=== PATIENT | male | born 1970 | race Caucasian/White ===

== ENCOUNTER 2019-09-18 13:24 | Outpatient (RCR) | payer BC, SELFPAY | END 2019-10-12 23:59 | disposition home or self-care (01) | LOC: GPT 13:24 | PROVIDERS: Family Provider Family Medicine; PCP Family Medicine; Visit Provider Orthopaedic Surgery | DX: Z47.89 Encounter for other orthopedic aftercare (principal) | CPT/HCPCS: 97032; 97110; 97140; 97161; 97530 ==

== ENCOUNTER 2019-10-13 06:00 | Outpatient (RCR) | payer BC, SELFPAY | END 2019-11-10 23:59 | disposition home or self-care (01) | LOC: GPT 06:00 | PROVIDERS: Family Provider Family Medicine; PCP Family Medicine; Visit Provider Orthopaedic Surgery | DX: S46.092D Other injury of muscle(s) and tendon(s) of the rotator cuff of left shoulder, subsequent encounter (principal); X58.XXXD Exposure to other specified factors, subsequent encounter | CPT/HCPCS: 97110; 97164; 97530 ==

== ENCOUNTER 2019-11-11 06:00 | Outpatient (RCR) | payer BC, SELFPAY | END 2019-12-11 23:59 | disposition home or self-care (01) | LOC: GPT 06:00 | PROVIDERS: Family Provider Family Medicine; PCP Family Medicine; Visit Provider Orthopaedic Surgery | DX: Z98.890 Other specified postprocedural states (principal); X58.XXXD Exposure to other specified factors, subsequent encounter | CPT/HCPCS: 97110; G0283 ==

== ENCOUNTER 2019-11-14 12:56 | Emergency (ER) | payer BC, SELFPAY ==
[2019-11-14 12:57] VITALS: BP 169/107; PULSE 68; RESP 16; TEMP 36.7; O2SAT 96; BMI 33.0
== END 2019-11-14 13:20 | disposition left against medical advice (07) ==
LOC: ER 14:54
PROVIDERS: Emergency Provider Emergency Medicine; Family Provider Family Medicine; PCP Family Medicine
DX: T15.90XA Foreign body on external eye, part unspecified, unspecified eye, initial encounter (principal); Z53.21 Procedure and treatment not carried out due to patient leaving prior to being seen by health care provider
CPT/HCPCS: 99281

== ENCOUNTER → 2020-06-19 10:06 | Outpatient (BNVA) | payer BC, SELFPAY | PROVIDERS: Family Provider Family Medicine; PCP Family Medicine; Visit Provider Family Medicine | DX: U07.1 COVID-19 (principal); E11.9 Type 2 diabetes mellitus without complications | CPT/HCPCS: 83036; 85025; 87400; 87635; 87880 ==

== ENCOUNTER 2020-07-25 13:21 | Outpatient (CLI) | payer BC, SELFPAY ==
--- NOTE | 2020-07-25 13:33 | XR_ITS ---
WS: [id number] Lumbar spine, AP and lateral views, 07/25/2020 Clinical Data: LOW BACK PAIN Comparison: Lumbar spine, 10/10/2018. Findings: There is a dextrorotoscoliosis with severe osteoarthritis and degenerative disc disease at all levels . No compression fractures are seen. The transverse processes and SI joints are normal. There are clips in the right upper quadrant from a cholecystectomy. XR/XR lumbar spine 2-3V* [id number] Impression: Dextrorotoscoliosis and severe osteoarthritis and degenerative disc disease unc hanged.
== END 2020-07-25 13:22 | disposition home or self-care (01) ==
LOC: RADWPI 13:25
PROVIDERS: PCP Family Medicine; Visit Provider Anesthesiology Pain Medicine
DX: M54.5 Low back pain (principal); M41.86 Other forms of scoliosis, lumbar region; M47.816 Spondylosis without myelopathy or radiculopathy, lumbar region; M51.36 Other intervertebral disc degeneration, lumbar region
CPT/HCPCS: 72100

== ENCOUNTER → 2021-01-19 10:06 | Outpatient (BNVA) | payer BC, SELFPAY | PROVIDERS: PCP Nurse Practitioner; Referring Provider Nurse Practitioner; Visit Provider Urology | DX: E34.9 Endocrine disorder, unspecified (principal); N39.9 Disorder of urinary system, unspecified; R39.9 Unspecified symptoms and signs involving the genitourinary system | CPT/HCPCS: 81003; 84403 ==

== ENCOUNTER → 2021-04-03 08:35 | Outpatient (BNVA) | payer BC, SELFPAY | PROVIDERS: PCP Nurse Practitioner; Visit Provider Urology | DX: R79.89 Other specified abnormal findings of blood chemistry (principal); D75.1 Secondary polycythemia; R07.9 Chest pain, unspecified; R51.9 Headache, unspecified | CPT/HCPCS: 84403; 85025 ==

== ENCOUNTER → 2021-05-05 10:08 | Outpatient (BNVA) | payer BC, SELFPAY | PROVIDERS: PCP Nurse Practitioner; Visit Provider Urology | DX: R79.89 Other specified abnormal findings of blood chemistry (principal); R39.9 Unspecified symptoms and signs involving the genitourinary system; D75.1 Secondary polycythemia | CPT/HCPCS: 81003; 84403 ==

== ENCOUNTER → 2021-05-20 11:01 | Outpatient (BNVA) | payer BC, SELFPAY | PROVIDERS: PCP Nurse Practitioner; Visit Provider Internal Medicine Rheumatology | DX: M19.90 Unspecified osteoarthritis, unspecified site (principal); R76.8 Other specified abnormal immunological findings in serum; Z79.899 Other long term (current) drug therapy; Z11.59 Encounter for screening for other viral diseases; Z11.1 Encounter for screening for respiratory tuberculosis; M65.30 Trigger finger, unspecified finger | CPT/HCPCS: 99204 ==

== ENCOUNTER 2021-12-10 10:07 | Outpatient (CLI) | payer BC, SELFPAY ==
--- NOTE | 2021-12-10 10:18 | MR_ITS ---
WS: [id number] MRI LUMBAR SPINE WITH CONTRAST TECHNIQUE: Sagittal T1, T2 and STIR imaging. Axial T1 and T2 imaging. Post gadolinium imaging was obt ained. CLINICAL INFORMATION: CHRONIC RADICULAR LOW BACK PAIN COMPARISON: MRI lumbar 2 ,019 FINDINGS: Lumbar scoliosis convex RIGHT. No acute compression fractures. Alignment is unchanged since 2019. Deg enerative disc disease throughout the lumbar spine. Disc space narrowing worse at L1-L2, L2-L3, L3-L4 , and L4-L5. L1-L2: Mild disc bulging with osteophytic ridging. Mild central canal stenosis. Impingement on the LE FT subarticular recess and traversing LEFT L2 nerve root. Mild facet arthropathy. Mild LEFT foraminal narrowing. Moderate facet arthropathy. L2-L3: Disc osteophyte complex with endplate ridging. Mild central canal stenosis. Impingement on the LEFT greater than RIGHT subarticular recess. Mild LEFT greater than RIGHT foraminal narrowing.Mild f acet arthropathy. L3-L4: Disc osteophyte complex with endplate ridging. Moderate central canal stenosis. Impingement tr aversing L4 nerve roots bilaterally. Moderate facet arthropathy. Moderate LEFT foraminal narrowing. L4-L5: Disc osteophyte complex with endplate ridging. Moderate central canal stenosis. Impingement on the traversing RIGHT L5 nerve root in the subarticular recess. Moderate facet arthropathy with ligam entum flavum hypertrophy. Severe RIGHT foraminal narrowing. L5-S1: Mild disc bulging and osteophytic ridging. Slight effacement of ventral thecal sac. Slight imp ingement traversing LEFT greater than RIGHT S1 nerve roots. Moderate facet arthropathy. Moderate LEFT and mild RIGHT foraminal narrowing. Suggestion of prior hemilaminectomies L4-L5. Prominent anterior hypertrophic changes LEFT L1-L3. Visualized pelvic bony structures: Normal. Paravertebral soft tissues: Normal. MR/MR lumbar spine wo/w con [id number] IMPRESSION: 1. Lumbar scoliosis convex RIGHT unchanged from previous. No acute compression fractures. 2. Mild central canal stenosis L1-L2, L2-L3, and moderate central canal stenos is L3-4 and L4-L5. 3. Impingement on the subarticular recess at LEFT L1-L2, bilateral L3-L4, and RIGHT L4-L5. 4. Bony foraminal narrowing worse at LEFT L3-L4, RIGHT L4-L5, and LEFT L5-S1. Bony foraminal narrowing severe at RIGHT L4-L5 5. Moderate facet arthropathy L3-L5. 6. Overall no significant changes compared to 2019 although prior imaging is s omewhat limited due to open magnet configuration.
[2021-12-10] MEDS: gadobenate dimeglumine 20 mL vial IV (11:34)
== END 2021-12-10 10:08 | disposition home or self-care (01) ==
PROVIDERS: PCP Nurse Practitioner; Visit Provider Nurse Practitioner
DX: M54.16 Radiculopathy, lumbar region (principal); M41.86 Other forms of scoliosis, lumbar region; M48.061 Spinal stenosis, lumbar region without neurogenic claudication; M47.816 Spondylosis without myelopathy or radiculopathy, lumbar region
CPT/HCPCS: 72158

== ENCOUNTER 2021-12-31 12:39 | Emergency (ER) | payer BC, SELFPAY ==
[2021-12-31 13:33] VITALS: BP 137/89; PULSE 74; RESP 16; TEMP 36.9; O2SAT 96; BMI 43.4
--- NOTE | 2021-12-31 15:15 | CTR_ITS ---
PROCEDURE INFORMATION: Exam: CT Abdomen And Pelvis With Contrast Exam date and time: 12/31/2021 4:32 PM Age: 51 years old Clinical indication: Abdominal pain; Localized; Lower; Additional info: Lower abd pain TECHNIQUE: Imaging protocol: Computed tomography of the abdomen and pelvis with contrast. Radiation optimization: All CT scans at this facility use at least one of these dose optimization techniques: automated exposure control; mA and/or kV adjustment per patient size (includes targeted exams where dose is matched to clinical indication); or iterative reconstruction. Contrast material: OMNI 300; Contrast volume: 0.95 ml; Contrast route: INTRAVENOUS (IV); COMPARISON: CR XR sacrum coccyx min 2V [id number] 10/22/2021 10:58 AM RADIATION DOSE METRICS: Total DLP (mGy-cm): 1837.7 FINDINGS: Lungs: Lingular atelectasis versus minimal infiltrate. Liver: Hepatic steatosis suspected. Gallbladder and bile ducts: Cholecystectomy. Pancreas: Normal. No ductal dilation. Spleen: Spleen enlarged to 15.9 cm. Adrenal glands: Normal. No mass. Kidneys and ureters: Normal. No hydronephrosis. Stomach and bowel: Prominent fluid in the small bowel without dilation suggestive of an enteritis. Diverticulosis without diverticulitis. Appendix: No evidence of appendicitis. Intraperitoneal space: Unremarkable. No free air. No significant fluid collection. Arteries: Unremarkable. No abdominal aortic aneurysm. Lymph nodes: Unremarkable. No enlarged lymph nodes. Urinary bladder: Unremarkable as visualized. Reproductive: Unremarkable as visualized. Bones/joints: Unremarkable. No acute fracture. Soft tissues: Unremarkable. CT/CT abdomen pelvis w con* [id number] IMPRESSION: 1. Prominent fluid in the small bowel without dilation suggestive of an enteritis. 2. Diverticulosis without diverticulitis. 3. Lingular atelectasis versus minimal infiltrate. 4. Hepatic steatosis suspected. 5. Cholecystectomy. 6. Spleen enlarged to 15.9 cm.
--- NOTE | 2021-12-31 15:15 | ECG_ITS ---
[facility] Test Date: 2021-12-31 Pat Name: Jake Alcala Department: Room: Gender: Male Wrap Checker: : 1970 Requested By: Nicole Marquez Order Number: [id number] Hakeem MD: Jennifer Chapman M.D. Measurements Intervals [place] Rate: 61 P: 46 ND: 143 QRS: 20 QRSD: 106 T: 53 QT: 389 QTc: 393 Interpretive Statements SINUS RHYTHM Compared to ECG 03/03/2019 22:15:45 No significant changes Electronically Signed On 12-31-2021 16:44:15 CDT by Jennifer Chapman M.D. [id number]
--- NOTE | 2021-12-31 15:18 | W.ED.GENADLT ---
HPI - General Adult General: Chief complaint: Abdominal Pain Stated complaint: lower stomach pain Time Seen by Provider: 12/31/21 15:02 History of Present Illness: Patient is a 51-year-old male with history of prior cholecystectomy, HTN, DM, DJD presenting to the emergency room with complaints of periumbilical pain x2 weeks. Patient has been having worsening pain in the last 2 weeks including intermittent sharp sensation. Patient says pain is worse with p.o. intake. Patient denies any melena hematochezia but reports significant diarrhea since onset of symptoms. Patient denies any sick contact, recent travel, or antibiotic use. Patient reports mild nausea without any vomiting. Denies any fever or chills, urinary complaints, chest pain, shortness breath, palpitation or lightheadedness. Onset:2 weeks ago Duration:2 weeks Location:home Severity:modreate Associated symptoms: Reports nausea; Deny chest pain, dyspnea, rash, palpitations or vomiting Review of Systems Const: Denies: fever(s) or chills Eyes: Denies: change in vision ENMT: Denies: mouth pain Card: Denies: chest pain or palpitations Resp: Denies: dyspnea or non-productive cough GI: Reports: abdominal pain, nausea and diarrhea; Denies: vomiting : Denies: dysuria Musc: Denies: extremity pain Skin/Breast: Denies: rash or new lesions Neuro: Denies: weakness in extremities Psych: Reports: other (Normal mood) Asaf/Lymph: Denies: easy bruising PFSH ED PFSH: Medical History High risk medication use Hypogonadism Inflammatory arthritis Lower urinary tract symptoms (LUTS) Polycythemia Rheumatoid factor positive Trigger finger Family History Mother Macular degeneration Father , AT AGE 64 Cancer LUNG Social History Alcohol intake: never Marital status: Current occupational status: employed History of recent travel: No Physical Exam Const: COMMON NORMALS: alert HENMT: COMMON NORMALS: atraumatic HEAD & SCALP: atraumatic MOUTH: moist mucous membranes not abnormal Eye: COMMON NORMALS: EOMs intact bilaterally and conjunctivae normal CONJUNCTIVA: Yes conjunctivae normal Neck/C-Spine: COMMON NORMALS: full ROM and supple Resp: COMMON NORMALS: normal respiratory effort and clear to auscultation bilaterally AUSCULTATION: clear to auscultation bilaterally Cardio: COMMON NORMALS: regular rate RATE: regular rate GI: COMMON NORMALS: Soft to palpation PALPATION: Yes Soft to palpation OTHER: +mild periumbilical TTP. NO guarding rebound, guarding, rigidity. No CVA tenderness to percussion. Neg Denney/Neg McBurney's point tenderness, no suprabupic tenderness to palpation. Extremity: COMMON NORMALS: full ROM Neuro: SENSORIUM/ORIENTATION: Yes alert MOTOR EXAM: No Abnormal motor strength present and Other motor observations present (no focal motor deficits) Psych: COMMON NORMALS: speech normal SPEECH: Yes normal speech MOOD & AFFECT: Yes euthymic mood Course Vital Signs: Vital signs: Vital Signs Temperature 97.8 F 12/31/21 18:28 Pulse Rate 85 12/31/21 18:28 Respiratory Rate 18 12/31/21 18:28 Blood Pressure 158/94 12/31/21 18:28 Pulse Oximetry 95 12/31/21 18:28 [facility] - General Adult Medical Decision Making 51-year-old male with a history of prior cholecystectomy, hypertension, diabetes, DJD presenting to the emergency room with complaints of periumbilical pain x2 weeks with nausea and diarrhea. On physical exam, patient is mild tenderness to palpation. No guarding no rebound tenderness. Rest of vitals within normal limit. Lab work-up within normal limit. CT abdomen pelvis showed mild enteritis. Patient is able to tolerate p.o. without difficulty after GI cocktail and reports abdominal pain is improved after GI cocktail. No suspicion for other acute intra-abdominal pathology including SBO, biliary pathology, appendicitis, diverticulitis, or other emergent condition requiring surgery. Troponin delta less than 5, EKG is nonischemic, not actively complaining of chest pain but just bloating. I do not suspect ACS at this time. Incidental findings of splenomegaly discussed extensively with patient. Patient received a copy of the CT report with the documented findings. Patient is instructed to follow up urgently with specialists. Rx Maalox/pepcid PRN dyspepsia, and zofran PRN nausea/vomiting Disposition: Discharge. Patient counseled regarding diagnostic impression, treatment plan. Patient given ED strict return precautions to return for continuation, worsening, or development of new symptoms. Instructed to f/u w/ PCP regarding symptoms today. Patient verbalized understanding. Lab Data : 12/31/21 15:57 12/31/21 15:57 Radiology Impressions Abdomen/Pelvis CT 12/31/21 15:15 IMPRESSION: 1. Prominent fluid in the small bowel without dilation suggestive of an enteritis. 2. Diverticulosis without diverticulitis. 3. Lingular atelectasis versus minimal infiltrate. 4. Hepatic steatosis suspected. 5. Cholecystectomy. 6. Spleen enlarged to 15.9 cm. Laboratory Results WBC 5.5 10^3/uL (4.0-10.0) 12/31/21 15:57 RBC 5.55 10^6/uL (4.1-5.3) H 12/31/21 15:57 Hgb 17.4 g/dL (11.7-16.6) H 12/31/21 15:57 Hct 50.2 % (42.0-52.0) 12/31/21 15:57 MCV 90.5 fl (80-94) 12/31/21 15:57 MCH 31.4 pg (28.0-34.0) 12/31/21 15:57 MCHC 34.7 g/dL (30.0-36.0) 12/31/21 15:57 RDW 14.3 % (12.1-15.1) 12/31/21 15:57 Plt Count 148 10^3/cmm (130-400) 12/31/21 15:57 MPV 12.0 fL (7.4-10.4) H 12/31/21 15:57 Neut % (Auto) 44.6 % 12/31/21 15:57 Lymph % (Auto) 34.6 % 12/31/21 15:57 [place] % (Auto) 14.9 % 12/31/21 15:57 Eos % (Auto) 5.3 % 12/31/21 15:57 Baso % (Auto) 0.4 % 12/31/21 15:57 Neut # (Auto) 2.47 10^3/uL (1.8-7.7) 12/31/21 15:57 Lymph # (Auto) 1.9 10^3/uL (0.8-4.8) 12/31/21 15:57 [place] # (Auto) 0.8 10^3/uL (0.2-0.9) 12/31/21 15:57 Eos # (Auto) 0.3 10^3/uL (0.0-0.8) 12/31/21 15:57 Baso # (Auto) 0.0 10^3/uL (0.0-0.1) 12/31/21 15:57 Nucleated RBC % (auto) 0 % 12/31/21 15:57 Nucleated RBCs # 0.0 /100WBC 12/31/21 15:57 Sodium 135 mmol/L (136-145) L 12/31/21 15:57 Potassium 4.2 mmol/L (3.5-5.1) 12/31/21 15:57 Chloride 101 mmol/L (98-107) 12/31/21 15:57 Carbon Dioxide 23 mmol/L (22-29) 12/31/21 15:57 Anion Gap 15.2 (5-19) 12/31/21 15:57 BUN 20 mg/dL (6-20) 12/31/21 15:57 Creatinine 1.1 mg/dL (0.7-1.2) 12/31/21 15:57 GFR Calculation 70.3 mL/min (90-130) L 12/31/21 15:57 Glucose 115 mg/dL (65-115) 12/31/21 15:57 Calculated Osmolality 284 mOsm/kg (285-295) L 12/31/21 15:57 Calcium 9.6 mg/dL (8.5-10.5) 12/31/21 15:57 Total Bilirubin 0.7 mg/dL (0.15-1.2) 12/31/21 15:57 AST 34 U/L (0-40) 12/31/21 15:57 ALT 41 U/L (0-41) 12/31/21 15:57 Alkaline Phosphatase 40 IU/L (40-130) 12/31/21 15:57 Troponin T Baseline 27 ng/L (0-15) H 12/31/21 15:57 Troponin T 120 Minute 27.05 ng/L (0-15) H 12/31/21 17:50 Delta Troponin T 0.05 ABS# (0-10) 12/31/21 17:50 Total Protein 7.4 g/dL (6.6-8.7) 12/31/21 15:57 Albumin 4.2 g/dL (3.5-5.2) 12/31/21 15:57 Globulin 3.2 g/dL (1.3-4.6) 12/31/21 15:57 Lipase 45 U/L (13-60) 12/31/21 15:57 Urine Color Yellow (Yellow) 12/31/21 16:50 Urine Appearance Clear (CLEAR) 12/31/21 16:50 Urine pH 5 (5-7) 12/31/21 16:50 Ur Specific [place] 1.015 (1.005-1.030) 12/31/21 16:50 Urine Protein Neg (Negative) 12/31/21 16:50 Urine Glucose (UA) Norm (Normal) 12/31/21 16:50 Urine Ketones Negative (Negative) 12/31/21 16:50 Urine Blood Neg (Negative) 12/31/21 16:50 Urine Nitrate Negative (Negative) 12/31/21 16:50 Urine Bilirubin 1+ (Negative) H 12/31/21 16:50 Urine Urobilinogen Neg mg/dL (Negative) 12/31/21 16:50 Ur Leukocyte Esterase Negative (Negative) 12/31/21 16:50 Imaging Data Other Imaging: Radiologist's impression: [address] [address] [address] Scan Report Signed Patient: Jake lAcala Unit #: [id number] : 1970 Age/Sex: 51 / M ADM Date: 12/31/21 Loc: ER Room/Bed: Attending Dr: Ordering Provider/Ordering MD: Nicole Marquez MD Date of Service: 12/31/21 Procedure(s): CT abdomen pelvis w con* [id number] Accession Number(s): [id number] Report Number: [id number] PROCEDURE INFORMATION: Exam: CT Abdomen And Pelvis With Contrast Exam date and time: 12/31/2021 4:32 PM Age: 51 years old Clinical indication: Abdominal pain; Localized; Lower; Additional info: Lower abd pain TECHNIQUE: Imaging protocol: Computed tomography of the abdomen and pelvis with contrast. Radiation optimization: All CT scans at this facility use at least one of these dose optimization techniques: automated exposure control; mA and/or kV adjustment per patient size (includes targeted exams where dose is matched to clinical indication); or iterative reconstruction. Contrast material: OMNI 300; Contrast volume: 0.95 ml; Contrast route: INTRAVENOUS (IV);? COMPARISON: CR XR sacrum coccyx min 2V [id number] 10/22/2021 10:58 AM RADIATION DOSE METRICS: Total DLP (mGy-cm): 1837.7 FINDINGS: Lungs: Lingular atelectasis versus minimal infiltrate. Liver: Hepatic steatosis suspected. Gallbladder and bile ducts: Cholecystectomy. Pancreas: Normal. No ductal dilation. Spleen: Spleen enlarged to 15.9 cm. Adrenal glands: Normal. No mass. Kidneys and ureters: Normal. No hydronephrosis. Stomach and bowel: Prominent fluid in the small bowel without dilation suggestive of an enteritis. Diverticulosis without diverticulitis. Appendix: No evidence of appendicitis. Intraperitoneal space: Unremarkable. No free air. No significant fluid collection. Arteries: Unremarkable. No abdominal aortic aneurysm. Lymph nodes: Unremarkable. No enlarged lymph nodes. Urinary bladder: Unremarkable as visualized. Reproductive: Unremarkable as visualized. Bones/joints: Unremarkable. No acute fracture. Soft tissues: Unremarkable. CT/CT abdomen pelvis w con* [id number] IMPRESSION: 1. Prominent fluid in the small bowel without dilation suggestive of an enteritis. 2. Diverticulosis without diverticulitis. 3. Lingular atelectasis versus minimal infiltrate. 4. Hepatic steatosis suspected. 5. Cholecystectomy. 6. Spleen enlarged to 15.9 cm. ? Dictated By: Cosme Woodall MD Signed By: Cosme Woodall MD Signed Date/Time: 12/31/21 1707 DD/ 1632 Discharge Plan Discharge Patient Disposition: Home Clinical Impression: Abdominal pain, Nausea, Diarrhea, Enteritis Condition: Stable Prescriptions: New Pepcid 20 mg tablet 20 mg PO BID PRN (Reason: abdominal pain) 10 Days Qty: 20 0RF ondansetron 4 mg tablet,disintegrating 4 mg PO TID PRN (Reason: nausea and vomiting) 4 Days Qty: 12 0RF Maalox Advanced 1,000-60 mg tablet,chewable 1 tab PO TID PRN (Reason: abdominal pain) 7 Days Qty: 21 0RF No Action naproxen 500 mg tablet,delayed release (DR/EC) 500 mg PO BID 0RF hydrocodone-acetaminophen 10-325 mg tablet 1 tab PO Q4H PRN (Reason: Pain) 0RF oxycodone 10 mg tablet 10 mg PO Q4H PRN (Reason: Pain) 0RF Ozempic 0.25 mg or 0.5 mg(2 mg/1.5 mL) pen injector 0.25 mg SUBCUT .WEEKLY 0RF Rx Instructions: TUESDAY OR TUESDAY metformin 1,000 mg tablet 1,000 mg PO BID Qty: 180 3RF fosinopril 40 mg tablet 40 mg PO BID 0RF Discharge Orders: Discharge ED (Routine); Ordered 12/31/21 Ordered By: Nicole Marquez Referrals: Chasity Mi FNP [Primary Care Provider] - Discharge Diet: Advance as tolerated Discharge Activity: Increase activity as tolerated Patient Instructions: Abdominal Pain (ED) Activity Restrictions/Additional Instructions: Please come back if you have any worsening abdominal pain, fever or chills, nausea or vomiting, diarrhea, blood in the stool, inability hold down liquid or solids, or any new concerning complaints. Here's a copy of your CT report. Please follow up for splenome[place] [address] CT Scan Report Signed Patient: Jake Alcala Unit #: [id number] : 1970 Age/Sex: 51 / M ADM Date: 12/31/21 Loc: ER Room/Bed: Attending Dr: Ordering Provider/Ordering MD: Nicole Marquez MD Date of Service: 12/31/21 Procedure(s): CT abdomen pelvis w con* [id number] Accession Number(s): [id number] Report Number: [id number] PROCEDURE INFORMATION: Exam: CT Abdomen And Pelvis With Contrast Exam date and time: 12/31/2021 4:32 PM Age: 51 years old Clinical indication: Abdominal pain; Localized; Lower; Additional info: Lower abd pain TECHNIQUE: Imaging protocol: Computed tomography of the abdomen and pelvis with contrast. Radiation optimization: All CT scans at this facility use at least one of these dose optimization techniques: automated exposure control; mA and/or kV adjustment per patient size (includes targeted exams where dose is matched to clinical indication); or iterative reconstruction. Contrast material: OMNI 300; Contrast volume: 0.95 ml; Contrast route: INTRAVENOUS (IV);? COMPARISON: CR XR sacrum coccyx min 2V [id number] 10/22/2021 10:58 AM RADIATION DOSE METRICS: Total DLP (mGy-cm): 1837.7 FINDINGS: Lungs: Lingular atelectasis versus minimal infiltrate. Liver: Hepatic steatosis suspected. Gallbladder and bile ducts: Cholecystectomy. Pancreas: Normal. No ductal dilation. Spleen: Spleen enlarged to 15.9 cm. Adrenal glands: Normal. No mass. Kidneys and ureters: Normal. No hydronephrosis. Stomach and bowel: Prominent fluid in the small bowel without dilation suggestive of an enteritis. Diverticulosis without diverticulitis. Appendix: No evidence of appendicitis. Intraperitoneal space: Unremarkable. No free air. No significant fluid collection. Arteries: Unremarkable. No abdominal aortic aneurysm. Lymph nodes: Unremarkable. No enlarged lymph nodes. Urinary bladder: Unremarkable as visualized. Reproductive: Unremarkable as visualized. Bones/joints: Unremarkable. No acute fracture. Soft tissues: Unremarkable. CT/CT abdomen pelvis w con* [id number] IMPRESSION: 1. Prominent fluid in the small bowel without dilation suggestive of an enteritis. 2. Diverticulosis without diverticulitis. 3. Lingular atelectasis versus minimal infiltrate. 4. Hepatic steatosis suspected. 5. Cholecystectomy. 6. Spleen enlarged to 15.9 cm. ? Dictated By: Cosme Woodall MD Signed By: Cosme Woodall MD Signed Date/Time: 12/31/21 1707 DD/ 1632 Coding Level of Care Code ED [employer] for Chg Fwd Exam Comprehensive
[2021-12-31 16:12] VITALS: PULSE 79; RESP 20; O2SAT 98
[2021-12-31 16:22] LABS: Basophils % 0.4 %; Eosinophils # 0.3 10^3/uL (0.0-0.8); Eosinophils % 5.3 %; Hematocrit 50.2 % (42.0-52.0); Hemoglobin 17.4 g/dL (11.7-16.6); Lymphocytes # 1.9 10^3/uL (0.8-4.8); Lymphocytes % 34.6 %; Mean Corpuscular HGB Conc 34.7 g/dL (30.0-36.0); Mean Corpuscular Hemoglobin 31.4 pg (28.0-34.0); Mean Corpuscular Volume 90.5 fl (80-94); Monocytes # 0.8 10^3/uL (0.2-0.9); Monocytes % 14.9 %; Neutrophils # 2.47 10^3/uL (1.8-7.7); Neutrophils % 44.6 %; Nucleated Red Blood Cells % 0 %; Platelet Count 148 10^3/cmm (130-400); Red Blood Count 5.55 10^6/uL (4.1-5.3); Red Cell Distribution Width 14.3 % (12.1-15.1); White Blood Count 5.5 10^3/uL (4.0-10.0)
[2021-12-31] MEDS: iohexol 350 mg/mL 100 mL Btl IV (16:32)
[2021-12-31 16:46] LABS: Alanine Aminotransferase 41 U/L (0-41); Albumin Level 4.2 g/dL (3.5-5.2); Alkaline Phosphatase 40 IU/L (40-130); Anion Gap 15.2 (5-19); Aspartate Amino Transferase 34 U/L (0-40); Blood Urea Nitrogen 20 mg/dL (6-20); Calcium 9.6 mg/dL (8.5-10.5); Carbon Dioxide 23 mmol/L (22-29); Chloride 101 mmol/L (98-107); Globulin 3.2 g/dL (1.3-4.6); Glomerular Filtration Rate 70.3 mL/min (90-130); Glucose 115 mg/dL (65-115); Lipase 45 U/L (13-60); Osmolality Calculated 284 mOsm/kg (285-295); Potassium 4.2 mmol/L (3.5-5.1); Sodium 135 mmol/L (136-145); Total Bilirubin 0.7 mg/dL (0.15-1.2); Total Protein 7.4 g/dL (6.6-8.7)
[2021-12-31 16:48] LABS: Troponin(5th) Baseline 27 ng/L (0-15)
[2021-12-31] MEDS: lidocaine 2% viscous 15 ML, aluminum-mag hydrox-simethicon 30 ML, sucralfate oral liq 1 GM PO (16:50)
[2021-12-31] MEDS: sodium chloride 0.9% 1,000 ML 999 ML IV (16:51)
[2021-12-31 17:04] LABS: Add Urine Microscopic? NO; Charge for UA Resulting for Rev
--- NOTE | 2021-12-31 17:15 | ECG_ITS ---
[facility] Test Date: 2021-12-31 Pat Name: Jake Alcala Department: Room: Gender: Male Archives Specialist: : 1970 Requested By: Nicole Marquez Order Number: [id number] Hakeem MD: Jennifer Chapman M.D. Measurements Intervals [place] Rate: 67 P: 37 MN: 144 QRS: 7 QRSD: 105 T: 45 QT: 381 QTc: 403 Interpretive Statements SINUS RHYTHM Compared to ECG 12/31/2021 16:04:15 No significant changes Electronically Signed On 01-01-2022 6:11:05 CDT by Jennifer Chapman M.D. [id number]
[2021-12-31 17:16] VITALS: BP 170/96; PULSE 88; RESP 18; O2SAT 95
[2021-12-31 17:16] LABS: Bilirubin Urine 1+ (Negative); Blood Urine Neg (Negative); Glucose Urine UA Norm (Normal); Ketones Urine Negative (Negative); Leukocyte Esterase Urine Negative (Negative); Nitrate Urine Negative (Negative); Protein Urine Neg (Negative); Specific Gravity, Urine 1.015 (1.005-1.030); Urine Appearance Clear (CLEAR); Urine Color Yellow (Yellow); Urobilinogen Urine Neg (Negative); pH Urine 5 (5-7)
--- NOTE | 2021-12-31 18:03 | PC.NURSE ---
pt drinking sprite without complaints
[2021-12-31 18:10] LABS: Troponin 5 2HR 27.05 ng/L (0-15)
[2021-12-31 18:13] LABS: Troponin 5 2HR Delta 0.05 ABS# (0-10)
[2021-12-31 18:28] VITALS: BP 158/94; PULSE 85; RESP 18; TEMP 36.6; O2SAT 95
== END 2021-12-31 18:20 | disposition home or self-care (01) ==
PROVIDERS: Emergency Provider Emergency Medicine; PCP Nurse Practitioner
DX: K52.9 Noninfective gastroenteritis and colitis, unspecified (principal); R11.0 Nausea; R16.1 Splenomegaly, not elsewhere classified; Z90.49 Acquired absence of other specified parts of digestive tract; I10 Essential (primary) hypertension; E11.9 Type 2 diabetes mellitus without complications
CPT/HCPCS: 74177; 80053; 81003; 83690; 84484; 85025; 93005; 96360; 99284; J7030; Q9967

== ENCOUNTER 2023-08-26 05:46 | Day surgery (SDC) | payer BC, SELFPAY ==
[2023-08-26] VITALS (10 sets, daily range): BP systolic 92–146; BP diastolic 62–84; PULSE 70–91; RESP 14–18; TEMP 36.6–36.7; O2SAT 92–96; BMI 43.4
--- NOTE | 2023-08-26 | XR_ITS ---
WS: [id number] INTRAOPERATIVE TECHNIQUE: 1 Spot fluoroscopic images for intraoperative purposes. FLUOROSCOPY TIME: 4 seconds CLINICAL INFORMATION: LEO PICS COMPARISON: None. FINDINGS: Intraoperative changes bunionectomy with osteotomy first proximal phalanx and metatarsal head. Screw fixation metatarsal head. Fixation device base of the first proximal phalanx. Osteotomy second PIP howard int with fixation device IMPRESSION: Images obtained for intraoperative purposes.
--- NOTE | 2023-08-26 05:53 | XR_ITS ---
WS: [id number] Right foot, 3 views, 08/26/2023 Clinical Data: pre op assesment Comparison: None. Findings: No fractures or dislocations are seen. No bone destruction or erosion is noted. There is a small buni on at the head of the right first metatarsal. There is faint calcification adjacent to the bunion. Th ere is a plantar spur. Impression: Bunion at head of right first metatarsal.
--- NOTE | 2023-08-26 05:55 | P.HPUD_ITS ---
Surgery/Procedure H&P Update DATE OF PROCEDURE: August 26, 2023 DATE H&P PERFORMED: 08/17/23 H&P UPDATE INFORMATION: I have reviewed H&P completed within last 30 days, I have examined patient prior to procedure, No changes to prior documentation and H&P is in [facility] EMR on date indicated PREOP DIAGNOSIS: Right hammertoe and bunion PRIMARY INDICATION FOR PROCEDURE: Right hammertoe and bunion PLANNED PROCEDURE: Operation Date: 08/26/23 07:00 Proposed Procedures p ?right bunionectomy with Dominik osteotomy and Bj osteotomy 28 299,05744,67170,M24.574, M21.611,M20.41(Right) - STANLEY Shay right foot flexor tendon transfer(Right) - STANLEY Shay right second hammertoe correction(Right) - Ramin Oshea DPM
--- NOTE | 2023-08-26 06:00 | PM.OP ---
Operative Report Date of procedure: August 26, 2023 Pre-op diagnosis: Right bunion Right foot contracture Right second hammertoe Procedure done: p ?right bunionectomy with Dominik osteotomy and Bj osteotomy [id number],M24.574, M21.611,M20.41(Right) - Ramin Oshea DPM s right foot flexor tendon transfer(Right) - STANLEY Shay right second hammertoe correction(Right) - Ramin Oshea DPM Implants: And 3.5 mm hammer tube 10 degree 3.5 mm headed screw by [place] by 18 mm in length 10 mm [place] staple 3-0 Vicryl, 4-0 Vicryl, 4-0 Specimens removed/disposition: None Pathology: none Surgeon: Ramin Oshea DPM Fill Manager: Genaro Mann Estimated blood loss: 5 57 IV fluids: 0 Urine output: 0 Complications: None Brief History: surgical intervention discussed, Dominik Cotton and hammer toe correction, patient wishes to proceed from several reasons, he has pain daily affecting his quality of life. He also is diabetic and is concerned that these deformities will contribute to his wound formation and infection, has a history of pressure sore at the dorsum of the second toe, right foot. I reviewed at length with the patient, the risks, potential complications, benefits, alternatives, expectations, and typical outcomes associated with the surgery. The risks and potential complications were explained in detail, including but not limited to infection, wound dehiscence or soft tissue complications, bleeding and hematoma, chronic edema, neuritis or nerve damage producing numbness or chronic pain, CRPS, failure to relieve pain or worsening pain, thick / painful / unsightly scar, limited motion / stiffness, malposition, delayed union, malunion, or nonunion, fracture, reaction to implants, anesthetic complications, venous thromboembolism, and deformity recurrence. I discussed the notion of no regrets with the patient as it pertains to complications and outcomes. The patient seemed to understand the nature of the proposed care and required convalescence. They asked appropriate questions, answered to their satisfaction. They are aware no guarantees can be made as to a satisfactory outcome and they understand there may be other possible unforeseen complications or outcomes not listed here that will be treated accordingly if they arise. There were no written or implied guarantees given to the patient. They gave informed consent to proceed. Procedure: Under mild sedation the patient was brought to the operating room and remained on the gurney in supine position. A timeout was performed. Anesthesia was administered by the anesthesia service. Local anesthesia injected by myself consisting of 0.5 sent Marcaine plain total of 30 cc and 10 cc of Exparel at the operative site. Well-padded pneumatic tourniquet was applied to the right ankle. The right lower extremity was scrubbed, prepped and draped utilizing normal aseptic technique. Right foot was elevated and exanguinated with an Esmarch bandage followed by inflation of the tourniquet to 250 mmHg. Attention was directed to the right first metatarsal phalangeal joint where a dorsal medial linear incision was made through skin with a #15 blade with dissection carried down through subcutaneous tissue to the layer of joint capsule utilizing sharp and blunt technique. Care was taken to retract and preserve neurovascular and tendinous structures. All bleeders were ligated and cauterized as necessary. Capsule incision was performed in a layered fashion and the head of the first metatarsal and base of the proximal phalanx were freed from the soft tissue and capsular attachments. The medial eminence of the first metatarsal head was transected followed by an osteotomy, chevron osteotomy with apex oriented distally in the head of the first metatarsal was translated laterally and a more anatomically straightened and corrected position followed by fixation utilizing standard AO technique with a 3 mm [place] screw with excellent bony apposition and compression noted. AP, oblique and lateral views confirmed that the screw did not violate the metatarsal phalangeal joint. Medial shelf was transected and all rough edges were smoothed. Bj osteotomy maintaining a lateral cortex was is performed at the proximal phalanx diaphyseal metaphyseal region followed by fixation with a 10 mm nitinol screw provided by [place] with excellent bony apposition and compression noted once again the AP, oblique and lateral views confirmed that the screw and hardware did not violate the metatarsal phalangeal joint. A straight medial column was appreciated after double osteotomy and smooth range of motion at the first metatarsal phalangeal joint was also appreciated. 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 The incision was irrigated with copious amounts of sterile saline solution and closed in a layered fashion. Capsule was closed with 3-0 Vicryl, subcutaneous tissue with 4-0 Vicryl and skin with 4-0 nylon. Tension was directed to the contracture of the right forefoot with a flexor contracture of the right second metatarsal plantar joint and right second toe. A linear incision was made over the right second toe through skin with a #15 blade, a transverse tenotomy of the extensor tendon which was then tagged with a hemostat and retracted proximally was performed. The head of the proximal phalanx and base of the intermediate phalanx were transected, under traction the flexor digitorum longus tendon was visualized and transected at its most distal portion this was split longitudinally and carried about medial and laterally and secured at the dorsal aspect of the proximal phalanx diaphysis with 4-0 nylon effectively transferring the deep flexor tendon torn longus tendon to maintain sagittal correction of the second toe. The incision was irrigated with saline solution. Arthrodesis of the right second proximal to phalangeal joint of the right second toe was achieved with a hammer tube with excellent bony apposition and compression noted. AP, oblique and lateral view confirmed that the implant was intramedullary and within its confines of the intermediate and proximal phalanx with rectus alignment. The incision was then irrigated with saline solution. The right second toe incision was then irrigated once again with saline solution and the extensor tendon was reapproximated with 4-0 Vicryl. Skin closed with 4-0 nylon. Both incisions were dressed with Adaptic, sterile 4 x 4's, Kerlix and Sorin wrap. Cam boot was applied to the right lower extremity and the tourniquet was deflated. A prompt hyperemic response was noted to the distal digits of the right foot. Patient tolerated the procedure and anesthesia well and was transferred to the PACU with vital signs stable and vascular status intact. Following a period of postoperative monitoring he will be discharged home, is to decrease his activities, rest and elevate his right foot, and he may be limited weightbearing with the cam boot at all times. Was given at home care instructions, scheduled follow-up and my cell phone number to contact me with any postoperative questions or concerns.
[2023-08-26 06:28] LABS: Glucose Point of Care 134 mg/dL (70-110)
[2023-08-26] MEDS: sodium chloride 0.9% 1,000 ML 30 ML IV (06:44)
--- NOTE | 2023-08-26 06:50 | ANES.PREANE2 ---
Pre-Anesthetic Assessment Height/Weight: Height 1.83 m Weight 145.15 kg O2 Del Method Room Air 08/26/23 06:06 Preop Diagnosis: Right hammertoe and bunion Operation Date: 08/26/23 07:00 Proposed Procedures p ?right bunionectomy with Dominik osteotomy and Bj osteotomy [id number],M24.574, M21.611,M20.41(Right) - Ramin Oshea DPM s right foot flexor tendon transfer(Right) - STANLEY Shay right second hammertoe correction(Right) - Ramin Oshea DPM Familial anesthetic complications: Wakes up violent - physical aggression, requires physical restraint by others Was Beta Khadar taken within 24 hours: N/A Was Clonidine taken within 24 hours: N/A Last intake: Intake Last Liquid Date 08/25/23 Last Liquid Time 21:30 Last Solid Date 08/25/23 Last Solid Time 21:30 Social No alcohol and No tobacco Exam alert, oriented x 3, clear to auscultation bilaterally and regular rate & rhythm Airway Mallampati: Class III Dentition: full GI Gastroesophageal Reflux Disease Metabolic Morbid Obesity Anesthetic Plan ASA status: 3 Anesthesia: General Risk of > 500 ml blood loss (7ml/kg in children): No Medications/Allergies Home Medications Medication Instructions Recorded Confirmed Last Taken Type naproxen 500 mg tablet,delayed 500 mg PO BID 11/14/19 08/26/23 08/25/23 History release oxycodone 10 mg tablet 10 mg PO Q4H PRN Pain 11/14/19 08/26/23 08/25/23 History semaglutide 0.25 mg or 0.5 mg (2 0.25 mg SUBCUT .WEEKLY 01/19/21 08/26/23 08/20/23 History mg/1.5 mL) subcutaneous pen injector (Ozempic) fosinopril 40 mg tablet 40 mg PO BID 12/31/21 08/26/23 08/25/23 History omeprazole 20 mg capsule,delayed 20 mg PO DAILY 08/25/23 08/26/23 08/25/23 History release tamsulosin 0.4 mg capsule (Flomax) 0.4 mg PO BEDTIME 08/25/23 08/26/23 08/25/23 History testosterone undecanoate 237 mg 237 mg PO BID 08/25/23 08/26/23 08/25/23 History capsule (Jatenzo) hydrocodone 10 mg-acetaminophen 1 tab PO Q6H PRN pain 7 days #28 08/26/23 Unknown Rx 325 mg tablet tabs Allergies Allergy/AdvReac Type Severity Reaction Status Date / Time levofloxacin [From Levaquin] Allergy Intermediate gout flare Verified 08/26/23 05:56 cephalexin [From Keflex] Allergy Mild rash Verified 08/26/23 05:56 Penicillins Allergy Mild algy rash Verified 08/26/23 05:56 eszopiclone [From Lunesta] Allergy Unknown Verified 08/26/23 05:56 Sulfa (Sulfonamide Allergy rash Verified 08/26/23 05:56 Antibiotics) sulfamethoxazole Allergy Unknown Verified 08/26/23 05:56 [From Bactrim] trimethoprim [From Bactrim] Allergy Unknown Verified 08/26/23 05:56 Current Medications Generic Name Dose Route Start Last Admin Trade Name Freq PRN Reason Stop Dose Admin Sodium Chloride 1,000 mls @ 30 mls/hr 08/26/23 06:30 08/26/23 06:44 Sodium Chloride 0.9% IV 08/27/23 06:29 30 mls/hr .Q24H HUGO Administration PFSH Anesthesia Medical History Trigger finger High risk medication use Inflammatory arthritis Rheumatoid factor positive Polycythemia Lower urinary tract symptoms (LUTS) Hypogonadism Family History Mother Macular degeneration Father , AT AGE 64 Cancer LUNG Social History Alcohol intake: never Substance/Drug Use: never Marital status: Current occupational status: employed Data Anesthesia Cardiac Studies: No Data to Display
[2023-08-26] MEDS: clindamycin 600 MG/50 ML PREMIX 100 MG IV (06:59)
[2023-08-26] MEDS: BUPivacaine liposome 13.3 mg/mL SDV 10 mL 133 MG INFILTRATI ×2 (07:29)
[2023-08-26] MEDS: BUPivacaine 0.5% INJ 10 mL INJECTION ×2 (07:31→07:32)
--- NOTE | 2023-08-26 08:21 | P.BOP_ITS ---
Date of Procedure: 08/26/23 Surgeon: Ramin Oshea DPM Drink Box Mechanic(s): Genaro Mann Procedure(s) performed: Right second hammertoe correction with flexor tendon transfer. Right bunionectomy. Findings of the procedure(s): None Estimated blood loss: 5 mL Specimen(s) removed: None Post-operative diagnosis: Right bunion, right hammertoe No complications with anesthesia or procedure.
--- NOTE | 2023-08-26 14:49 | ANE.PACU2 ---
Inpatient post-anesthesia follow up: Airway intact: Yes Vital signs: Temperature 97.8 F Pulse Rate 81 Respiratory Rate 16 Blood Pressure 136/84 Pulse Oximetry 94 Oxygen Delivery Me thod Room Air Oxygen Flow Rate 6 Fraction of Inspir ed Oxygen Hydration adequate: Yes Nausea and vomiting: No Pain level: 1 Mental status: Baseline
== END 2023-08-26 09:43 | disposition home or self-care (01) ==
PROVIDERS: PCP Nurse Practitioner; Visit Provider Podiatrist Foot & Ankle Surgery
PROC: (CPT 28298; principal; 2023-08-26 07:00)
PROC: (CPT 27691; 2023-08-26 07:00)
PROC: (CPT 28285; 2023-08-26 07:00)
DX: M21.611 Bunion of right foot (principal); M24.574 Contracture, right foot; M20.41 Other hammer toe(s) (acquired), right foot; K21.9 Gastro-esophageal reflux disease without esophagitis; E66.01 Morbid (severe) obesity due to excess calories; Z68.41 Body mass index [BMI] 40.0-44.9, adult
CPT/HCPCS: 27691; 28285; 28299; 36416; 73620; 73630; 76000; 82962; C1713; C9290; J2704; J3010; J3490; J7030

== ENCOUNTER → 2023-09-08 10:39 | Outpatient (BNVA) | payer BC, SELFPAY | PROVIDERS: PCP Nurse Practitioner; Visit Provider Podiatrist Foot & Ankle Surgery | DX: Z98.890 Other specified postprocedural states (principal) | CPT/HCPCS: 73630 ==

== ENCOUNTER 2023-09-08 14:56 | Outpatient (CLI) | payer BC, SELFPAY | END 2023-09-08 14:57 | disposition home or self-care (01) | LOC: SPT 14:57 | PROVIDERS: PCP Nurse Practitioner; Visit Provider Podiatrist Foot & Ankle Surgery | DX: Z47.89 Encounter for other orthopedic aftercare (principal) | CPT/HCPCS: L3100 ==

== ENCOUNTER 2023-09-19 10:21 | Emergency (ER) | payer BC, SELFPAY ==
[2023-09-19 10:33] VITALS: BP 172/81; PULSE 85; RESP 16; TEMP 37; O2SAT 93; BMI 43.7
--- NOTE | 2023-09-19 11:21 | XRR_ITS ---
PROCEDURE INFORMATION: Exam: XR Chest Exam date and time: 09/19/2023 12:12 PM Age: 53 years old Clinical indication: Cough and dyspnea; Additional info: Dyspnea/cough TECHNIQUE: Imaging protocol: Radiologic exam of the chest. Views: 1 view. COMPARISON: CR XR chest 1V [id number] 03/03/2019 10:41 PM FINDINGS: Lungs: No consolidation. Pleural spaces: No sizable pleural effusion or pneumothorax. Heart/Mediastinum: No cardiomegaly. Bones/joints: Unremarkable. XR/XR chest 1V portable [id number] IMPRESSION: No acute intrathoracic findings.
--- NOTE | 2023-09-19 11:21 | ED_ITS ---
HPI - COVID 2 General: Chief Complaint: COVID symptoms Stated Complaint: sob, possible covid Time Seen by Provider: 09/19/23 10:23 Source: patient Mode of arrival: ambulatory Triage information: Has fever, cough or shortness of breath . Exposure to COVID + person last 14 days History of Present Illness: 53-year-old male presents to the emergen cy room with sore throat cough and congestion. His son recently returned home for holiday break and was found to have COVID. Because the household contacts nurse practitioner who sees him prescribed Paxlovid. He is coming in today complaining of a sore throat. He is not had any productive cough no hemoptysis he has had some mild exertional dyspnea MD complaint: has COVID symptoms Prior covid testing: no COVID 19 common symptoms: positive fever(s), chills, cough, non-productive cough and dyspnea COVID 19 other sytmptoms: negative chest pain Onset (ago): day(s) Severity: mild Pertinent comorbid conditions: diabetes Treatment prior to arrival: none COVID Results: 2 SARS-CoV-2 RNA (RT-PCR) Not detected (NOT DETECTED) 06/19/20 1 3:25 SARS-CoV-2 (PCR) Detected (NOT DETECT) A 09/19/23 12:54 Coronavirus Type 229E (PCR) Not detected (NOT DETECT) 09/19/23 12:54 Review of Systems 2 Const: Reports: fever(s) and chills Card: Denies: chest pain Resp: Reports: dyspnea and non-productive cough GI: Denies: abdominal pain : Denies: dysuria, urinary frequency or urinary urgency Musc: Denies: neck pain or back pain Skin/Breast: Denies: rash PFSH ED 2 PFSH: Medical History Trigger finger High risk medication use Inflammatory arthritis Rheumatoid factor positive Polycythemia Lower urinary tract symptoms (LUTS) Hypogonadism Family History Mother Macular degeneration Father , AT AGE 64 Cancer LUNG Social History Alcohol intake: never Substance/Drug Use: never Marital status: Current occupational status: employed Physical Exam 2 Const: GENERAL APPEARANCE: cooperative and comfortable O RIENTATION/CONSCIOUSNESS: Yes awake, Yes oriented to person, Yes oriented to place and Yes oriented to time HENMT: COMMON NORMALS: normocephalic, atraumatic and hearing grossly normal bilaterally HEAD & SCALP: normocephalic and atraumatic OTHER: No stridor[[p[p Resp: COMMON NORMALS: normal respiratory effort, No retractions, No use of accessory muscles and clear to auscultation bilaterally AUSCULTATION: clear to auscultation bilaterally Cardio: COMMON NORMALS: regular rate, regular rhythm and No murmurs present (Cardio) RATE: regular rate RHYTHM: regular rhythm GI: COMMON NORMALS: Soft to palpation and No hepatosplenomegaly present A USCULTATION: Yes normoactive bowel sounds PALPATION: Yes Soft to palpation, No Tenderness to palpation present (GI), No Guarding due to palpation present (GI) and Yes No hepatosplenomegaly present Extremity: COMMON NORMALS: normal to inspection, capillary refill normal, no clubbing, cyanosis or edema, no calf tenderness and no pedal edema Neuro: SENSORIUM/ORIENTATION: Yes oriented to person, Yes oriented to place and Yes oriented to time Skin: COMMON NORMALS: no rashes or lesions noted GENERAL SKIN EXAM: no rashes or lesions noted Course 2 Vital Signs: Vital signs: Vital Signs Temperature 98.6 F 09/19/23 10:33 Pulse Rate 91 09/19/23 13:42 Respiratory Rate 16 09/19/23 10:33 Blood Pressure 140/90 09/19/23 13:42 Pulse Oximetry 96 09/19/23 13:42 Oxygen Delivery Me thod Room Air 09/19/23 12:49 MDM - COVID Medical Decision Making Patient is already on Paxlovid, continue the Paxlovid for now, supportive cares follow-up as needed with primary care. Medical Records I reviewed the patient's medical records. Lab Data I reviewed the patient's lab results. 09/19/23 11:35 09/19/23 11:35 Radiology Impressions Chest X-Ray 09/19/23 11:21 IMPRESSION: No acute intrathoracic findings. Laboratory Results WBC 3.94 10^3/uL (3.29-11.43) 09/19/23 11:35 RBC 5.21 10^6/uL (3.85-5.65) 09/19/23 11:35 Hgb 14.60 g/dL (11.27-16.99) 09/19/23 11:35 Hct 43.5 % (37-53) 09/19/23 11:35 MCV 83.5 fl (82-101) 09/19/23 11:35 MCH 28.0 pg (27-33) 09/19/23 11:35 MCHC 33.6 g/dL (30-55) 09/19/23 11:35 RDW 13.6 % (12.1-15.1) 09/19/23 11:35 Plt Count 123 10^3/cmm (157-399) L 09/19/23 11:35 MPV 11.6 fL (7.4-10.4) H 09/19/23 11:35 Neut % (Auto) 64.4 % 09/19/23 11:35 Lymph % (Auto) 22.3 % 09/19/23 11:35 [place]eman % (Auto) 10.9 % 09/19/23 11:35 Eos % (Auto) 1.8 % 09/19/23 11:35 Baso % (Auto) 0.3 % 09/19/23 11:35 Neut # (Auto) 2.54 10^3/uL (1.8-7.7) 09/19/23 11:35 Lymph # (Auto) 0.9 10^3/uL (0.8-4.8) 09/19/23 11:35 [place]eman # (Auto) 0.4 10^3/uL (0.2-0.9) 09/19/23 11:35 Eos # (Auto) 0.1 10^3/uL (0.0-0.8) 09/19/23 11:35 Baso # (Auto) 0.0 10^3/uL (0.0-0.1) 09/19/23 11:35 Nucleated RBC % (auto) 0 % 09/19/23 11:35 Nucleated RBCs # 0.0 /100WBC 09/19/23 11:35 Sodium 137 mmol/L (136-145) 09/19/23 11:35 Potassium 4.2 mmol/L (3.5-5.1) 09/19/23 11:35 Chloride 103 mmol/L (98-107) 09/19/23 11:35 Carbon Dioxide 25 mmol/L (22-29) 09/19/23 11:35 Anion Gap 13.2 (5-19) 09/19/23 11:35 BUN 13 mg/dL (6-20) 09/19/23 11:35 Creatinine 1.4 mg/dL (0.7-1.2) H 09/19/23 11:35 GFR Calculation 52.8 mL/min (90-130) L 09/19/23 11:35 Glucose 128 mg/dL (65-115) H 09/19/23 11:35 Calculated Osmolality 286 mOsm/kg (285-295) 09/19/23 11:35 Calcium 9.4 mg/dL (8.5-10.5) 09/19/23 11:35 Total Bilirubin 0.4 mg/dL (0.15-1.2) 09/19/23 11:35 AST 32 U/L (0-40) 09/19/23 11:35 ALT 22 U/L (0-41) 09/19/23 11:35 Alkaline Phosphatase 44 U/L (40-130) 09/19/23 11:35 Total Protein 7.3 g/dL (6.6-8.7) 09/19/23 11:35 Albumin 3.8 g/dL (3.5-5.2) 09/19/23 11:35 Globulin 3.5 g/dL (1.3-4.6) 09/19/23 11:35 Coronavirus 229E (PCR) Not detected (NOT DETECT) 09/19/23 12:54 Influenza Type A Ag negative (Negative) 09/19/23 12:44 Influenza Type B Ag negative (Negative) 09/19/23 12:44 SARS-CoV-2 (PCR) Detected (NOT DETECT) A 09/19/23 12:54 2 SARS-CoV-2 RNA (RT-PCR) Not detected (NOT DETECTED) 06/19/20 1 3:25 SARS-CoV-2 (PCR) Detected (NOT DETECT) A 09/19/23 12:54 Coronavirus Type 229E (PCR) Not detected (NOT DETECT) 09/19/23 12:54 All radiology interpretation(s) finalized by discharge Discharge Plan Discharge Patient Disposition: Home Clinical Impression: COVID-19 Condition: Stable Prescriptions: No Action naproxen 500 mg tablet,delayed release (DR/EC) 500 mg PO BID oxycodone 10 mg tablet 10 mg PO Q4H PRN (Reason: Pain) Ozempic 0.25 mg or 0.5 mg(2 mg/1.5 mL) pen injector 0.25 mg SUBCUT .WEEKLY (DME) DARCO splint See Rx Instructions .Route .MEDSUPPLY Qty: 1 0RF Rx Instructions: As directed tamsulosin [Flomax] 0.4 mg Capsule 0.4 mg PO BEDTIME omeprazole 20 mg Capsule,Delayed Release(Dr/Ec) 20 mg PO DAILY Jatenzo 237 mg Capsule 237 mg PO BID Rx Instructions: must administer with a meal/food fosinopril 40 mg tablet 40 mg PO BID Discharge Orders: Discharge ED (Routine); Ordered 09/19/23 Ordered By: Kevin Stevenson Referrals: Chasity Mi, STAKING TECHNICIAN [Primary Care Provider] - Discharge Diet: Usual diet Discharge Activity: Increase activity as tolerated Patient Instructions: COVID-19 (Coronavirus Disease 2019) (ED), Opioid Safety, Pain Management Activity Restrictions/Additional Instructions: Thank you for choosing [facility] for your healthcare needs today. Please realize this is an emergency room and that we are providing you with a medical screening exam and this may not be complete and all inclusive of all the testing and or work up that you may need to determine your ailment or severity of your illness. It is very important that you follow up as instructed or that you return to the Emergency Department should you have concerns or if your condition changes or worsens in any way. Coding Level of Care Code ED Silk Blocker for Belkys Pollock
[2023-09-19 11:44] LABS: Basophils % 0.3 %; Eosinophils # 0.1 10^3/uL (0.0-0.8); Eosinophils % 1.8 %; Hematocrit 43.5 % (37-53); Lymphocytes # 0.9 10^3/uL (0.8-4.8); Lymphocytes % 22.3 %; Mean Corpuscular HGB Conc 33.6 g/dL (30-55); Mean Corpuscular Volume 83.5 fl (82-101); Mean Platelet Volume 11.6 fL (7.4-10.4); Monocytes # 0.4 10^3/uL (0.2-0.9); Monocytes % 10.9 %; Neutrophils # 2.54 10^3/uL (1.8-7.7); Neutrophils % 64.4 %; Nucleated Red Blood Cells % 0 %; Platelet Count 123 10^3/cmm (157-399); Red Blood Count 5.21 10^6/uL (3.85-5.65); Red Cell Distribution Width 13.6 % (12.1-15.1); White Blood Count 3.94 10^3/uL (3.29-11.43)
[2023-09-19 12:07] LABS: Alanine Aminotransferase 22 U/L (0-41); Albumin Level 3.8 g/dL (3.5-5.2); Alkaline Phosphatase 44 U/L (40-130); Anion Gap 13.2 (5-19); Aspartate Amino Transferase 32 U/L (0-40); Blood Urea Nitrogen 13 mg/dL (6-20); Calcium 9.4 mg/dL (8.5-10.5); Carbon Dioxide 25 mmol/L (22-29); Chloride 103 mmol/L (98-107); Globulin 3.5 g/dL (1.3-4.6); Glomerular Filtration Rate 52.8 mL/min (90-130); Glucose 128 mg/dL (65-115); Osmolality Calculated 286 mOsm/kg (285-295); Potassium 4.2 mmol/L (3.5-5.1); Sodium 137 mmol/L (136-145); Total Bilirubin 0.4 mg/dL (0.15-1.2); Total Protein 7.3 g/dL (6.6-8.7)
[2023-09-19 12:48] VITALS: PULSE 87; O2SAT 96
[2023-09-19 12:49] VITALS: O2SAT 96
[2023-09-19 13:11] LABS: Influenza A by IFA negative (Negative); Influenza B by IFA negative (Negative)
[2023-09-19 13:42] VITALS: BP 140/90; PULSE 91; O2SAT 96
[2023-09-19 14:49] LABS: Adenovirus Not Detected (NOT DETECT); Chlamydia Pneumoniae Not Detected (NOT DETECT); Coronavirus 229E,HKU1,NL63,OC4 Not Detected (NOT DETECT); Human Metapneumovirus Not Detected (NOT DETECT); Human Rhinovirus/Enterovirus Not Detected (NOT DETECT); Influenza A Not Detected (NOT DETECT); Influenza A H1 Not Detected (NOT DETECT); Influenza A H1-2009 Not Detected (NOT DETECT); Influenza A H3 Not Detected (NOT DETECT); Influenza B Not Detected (NOT DETECT); Mycoplasma Pneumoniae Not Detected (NOT DETECT); Parainfluenza Virus Type 1 Not Detected (NOT DETECT); Parainfluenza Virus Type 2 Not Detected (NOT DETECT); Parainfluenza Virus Type 3 Not Detected (NOT DETECT); Parainfluenza Virus Type 4 Not Detected (NOT DETECT); Respiratory Syncytial Virus A Not Detected (NOT DETECT); Respiratory Syncytial Virus B Not Detected (NOT DETECT)
[2023-09-19 14:54] LABS: SARS-COV-2 Detected (NOT DETECT)
== END 2023-09-19 13:44 | disposition home or self-care (01) ==
PROVIDERS: Emergency Provider Family Medicine; PCP Nurse Practitioner
DX: U07.1 COVID-19 (principal)
CPT/HCPCS: 36415; 71045; 80053; 85025; 87635; 87804; 99284

== ENCOUNTER → 2023-09-28 10:15 | Outpatient (BNVA) | payer BC, SELFPAY | PROVIDERS: PCP Nurse Practitioner; Visit Provider Podiatrist Foot & Ankle Surgery | DX: Z98.890 Other specified postprocedural states (principal) | CPT/HCPCS: 73630 ==

== ENCOUNTER → 2023-10-06 13:06 | Outpatient (BNVA) | payer BC, SELFPAY | PROVIDERS: PCP Nurse Practitioner; Visit Provider Podiatrist Foot & Ankle Surgery | DX: Z98.890 Other specified postprocedural states (principal); Z87.39 Personal history of other diseases of the musculoskeletal system and connective tissue | CPT/HCPCS: 73630 ==

== ENCOUNTER → 2023-11-17 12:53 | Outpatient (BNVA) | payer BC, SELFPAY | PROVIDERS: PCP Nurse Practitioner; Visit Provider Podiatrist Foot & Ankle Surgery | DX: Z98.890 Other specified postprocedural states (principal) | CPT/HCPCS: 73630 ==

== ENCOUNTER → 2025-04-30 14:11 | Outpatient (BNVA) | payer BC, SELFPAY | PROVIDERS: Visit Provider Orthopaedic Surgery | DX: M54.9 Dorsalgia, unspecified (principal); Z01.818 Encounter for other preprocedural examination; M54.41 Lumbago with sciatica, right side; M54.42 Lumbago with sciatica, left side; G89.29 Other chronic pain | CPT/HCPCS: 36415; 72110; 80053; 81001; 85025 ==